=== PATIENT | male | born 1985 ===

== ENCOUNTER 2016-07-03 19:53 | Emergency (ER) | payer MEDICAID ==
[2016-07-03] MEDS ORDERED: DIPHTH,PERTUSS(ACELL),TET VAC 0.5 ML VIAL IM V ONE (21:41)
--- NOTE | 2016-07-04 07:40 | RAD ---
HAND-LEFT 3 VIEWS HISTORY: Bilateral hand pain and swelling. COMPARISONS: None. FINDINGS: 3 views of the left hand demonstrate normal bony mineralization. The visualized osseous structures are intact. The alignment is normal. The joint spaces are well-maintained. No focal soft tissue abnormalities are seen. IMPRESSION: 1. Negative views of the left hand.
== END 2016-07-03 22:06 | disposition home or self-care (01) ==
LOC: ED 19:53
DX: R20.0 Anesthesia of skin (principal); M79.641 Pain in right hand; F17.210 Nicotine dependence, cigarettes, uncomplicated